=== PATIENT | female | born 1995 | race Caucasian/White ===

== ENCOUNTER 2019-09-09 14:56 | Outpatient (CLI) | payer BC, SELFPAY ==
--- NOTE | ~2019-09-09 | US_ITS ---
EXAMINATION: US thyroid DATE: 09/09/2019 15:29 INDICATION: Autoimmune thyroiditis. TECHNIQUE: Multiple ultrasound images of the thyroid were obtained. COMPARISON: Thyroid ultrasound 09/12/2014 FINDINGS: The right thyroid lobe measures 4.8 x 1.7 x 1.7 cm. The left thyroid lobe measures 4.5 x 1.2 x 2.1 c m. The thyroid demonstrates diffusely coarsened echotexture and increased vascularity. In the right thyroid lobe, there is a 7 mm solid, hypoechoic, [id number]-othb-[id number] nodule with ill-defined margin witho ut echogenic foci (TI-RADS TR4). IMPRESSION: 1. Heterogeneous, hypervascular thyroid, likely chronic lymphocytic (Jailene) thyroiditis. 2. Small thyroid nodule, likely not clinically significant. No follow-up is needed. Reviewed, dictated and finalized at location A. IMPRESSION: 1. Heterogeneous, hypervascular thyroid, likely chronic lymphocytic (Jailene) thyroiditis. 2. Small thyroid nodule, likely not clinically significant. No follow-up is nee ded.
== END 2019-09-09 14:57 | disposition home or self-care (01) ==
PROVIDERS: PCP Internal Medicine; Visit Provider Internal Medicine
DX: E06.3 Autoimmune thyroiditis (principal)
CPT/HCPCS: 76536

== ENCOUNTER 2020-04-03 16:10 | Outpatient (RCR) | payer OTHER, SELFPAY ==
--- NOTE | 2020-04-06 06:41 | PTOPEVAL ---
Thank you for referring Cathy Almanza to [facility].? The patient is scheduled to be seen for therapy? ___2_x/week for _6__ weeks. Please review, sign, date and return this plan of care JOHNSON. I agree with and certify that the following plan of care is medically necessary. Referring Physician Date Admitting Provider: Attending Provider: UNKNOWN,DOCTOR Referring Provider: *PT Outpatient Evaluation Start: 04/03/20 16:06 Freq: Status: Active Protocol: Document 04/03/20 16:07 RAMONE (Rec: 04/03/20 16:50 RAMONE [id number]) Therapy Assessment Status Assessment Status Assessment Status Evaluation Evaluation Information Problem Diagnosis right sided low back pain Onset 03/26/20 Subjective Information Pt. states that she started Query Text:As Reported By Patient/ developing back pain in September Family of 2016. 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 She reports that her pain has been on/off since 2016. She reports that she has had MRI and xray that revealed disc bulging. She describes pain at the right PSIS and stays localized. She states that it is not constant. she reports bending and twisting, as well as lifting will increase her pain. She states that if she sits for long periods of time initial movements can be difficult. She reports that her pain can ease with movement. She reports her goal is to decrease her low back pain. 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 reports that she sits 7 Comments hours a day for work Pain Assessment Pain Scale Pain Scale Used Numeric (1 - 10) Self Report Pain Assessment
--- NOTE | 2020-04-16 14:12 | PCPTNOTE ---
patient called and cancelled appt due to hurting too much. GINNA
--- NOTE | 2020-05-29 11:33 | PCPTNOTE ---
Ms. Almanza attended a total of 4 treatment sessions from 04/03/20 to 04/14/20. She contacted the clinic via phone after her final appointment noting lack of progress. She will be discharged from our care. Refer to pt. last daily note regarding discharge status. Abel Valle, MPT
== END 2020-04-14 14:48 | disposition home or self-care (01) ==
LOC: CHSPT 16:10
PROVIDERS: PCP Internal Medicine
DX: M54.5 Low back pain (principal); G89.29 Other chronic pain
CPT/HCPCS: 97014; 97110; 97140; 97161; G0283

== ENCOUNTER 2020-12-23 18:14 | Outpatient (CLI) | payer OTHER, SELFPAY ==
[2020-12-23 18:54] LABS: Hematocrit 41.6 % (35.0-49.0); Hemoglobin 14.1 g/dL (12.0-15.0); Mean Corpuscular HGB Conc 33.9 g/dL (32.0-36.0); Mean Corpuscular Hemoglobin 29.7 pg (27.0-31.0); Mean Corpuscular Volume 87.6 fL (78.0-102.0); Mean Platelet Volume 9.1 fl (9.2-11.8); Platelet Count Result 444 K/mm3 (150-420); Red Blood Count 4.75 M/mm3 (4.20-5.40); Red Cell Distribution Width 11.7 % (11.6-14.4); White Blood Count 7.2 K/mm3 (4.8-10.8)
[2020-12-23 19:17] LABS: SARS-CoV-2 Ag Negative (Negative)
[2020-12-23 19:45] LABS: SARS-CoV-2 RNA PCR Negative (Negative)
== END 2020-12-23 18:15 | disposition home or self-care (01) ==
LOC: CHSLAB 18:15
PROVIDERS: PCP Internal Medicine; Visit Provider Internal Medicine
DX: J06.9 Acute upper respiratory infection, unspecified (principal); Z20.822 Contact with and (suspected) exposure to COVID-19
CPT/HCPCS: 36415; 85027; 87426; C9803; U0003; U0005

== ENCOUNTER 2021-05-18 09:08 | Outpatient (CLI) | payer OTHER, SELFPAY | END 2021-05-18 09:09 | disposition home or self-care (01) | LOC: CHSOUTPT 09:26 | PROVIDERS: PCP Internal Medicine; Visit Provider Specialist | DX: D22.5 Melanocytic nevi of trunk (principal) | CPT/HCPCS: 88305 ==

== ENCOUNTER 2021-09-22 20:19 | Emergency (ER) | payer OTHER, SELFPAY ==
--- NOTE | 2021-09-22 20:38 | ED.ABDPAIN ---
HPI - Abdominal Pain General Chief Complaint: Abdominal Pain Stated Complaint: stomach pain Time Seen by Provider: 09/22/21 20:38 Source: patient History of Present Illness HPI narrative: 25-year-old presents with a 6 hour history -- generalized abdominal. Pain is intermittent. No fever. Nausea /vomiting /diarrhea. LMP 3 weeks ago. No history of any abdominal surgeries. No Prior episodes of abdominal pain. MD elicited complaint: abdominal pain Pertinent past history: none Onset (ago): hour(s) ( Started 9 hours ago) Pain Consistency: constant Location: diffuse Severity: moderate Quality: aching Radiation: back Exacerbating factors: nothing Relieving factors: nothing Associated symptoms: denies other symptoms Related Data Date of Last Menstrual Period: 09/01/21 Patient : No Home Medications Medication Instructions Recorded Confirmed levonorgestrel-ethinyl estrad 0.15 tablet PO DAILY 09/22/21 09/22/21 [Isaac (28)] levothyroxine 75 mcg PO DAILY 09/22/21 09/22/21 Allergies Allergy/AdvReac Type Severity Reaction Status Date / Time No Known Allergies Allergy Verified 09/22/21 20:38 Review of Systems Review of Systems: All systems reviewed & are unremarkable except as noted in HPI and below Constitutional: Constitutional: Reports as per HPI and Reports no additional constitutional complaints Eyes: Eyes: Reports as per HPI and Reports no additional eye complaints ENT: Reports system reviewed and no additional complaints, except as documented and Reports as per HPI Cardiovascular: Cardiovascular: Reports as per HPI and Reports no additional cardiovascular complaints Respiratory: Respiratory: Reports as per HPI and Reports no additional respiratory complaints Gastrointestinal: Gastrointestinal: Reports as per HPI, Reports no additional gastrointestinal complaints and Reports abdominal pain Genitourinary: Genitourinary: Reports no additional female genitourinary complaints and Reports as per HPI Musculoskeletal: Musculoskeletal: Reports no additional musculoskeletal complaints and Reports as per HPI Integumentary/Breasts: Skin/Breast: Reports system reviewed and no additional complaints, except as docu and Reports as per HPI Neurologic: Reports system reviewed and no additional complaints, except as documented and Reports as per HPI Psychiatric: Psychiatric: Reports no additional psychiatric complaints and Reports as per HPI Endocrine: Endocrine: Reports no additional endocrine complaints and Reports as per HPI Hematologic/Lymphatic: Hematologic/Lymphatic: Reports no additional hematologic/lymphatic complaints and Reports as per HPI Allergic/Immunologic: Allergic/Immunologic: Reports no additional allergic/immunologic complaints and Reports as per HPI Exam Const: General: no acute distress and alert Orientation/consciousness: patient oriented x3 HENMT: Head: normal to inspection Mouth: Yes lip normal Eyes: Conjunctivae: conjunctivae normal Pupils: Equal, round and reactive pupils present Neck: Neck: normal visual inspection and no lymphadenopathy Chest: Chest palpation & inspection: normal inspection of the chest and abnormal inspection of the chest Resp: Effort & Inspection: normal respiratory effort Auscultation: clear to auscultation bilaterally Cardio: Rate: regular rate Rhythm: regular rhythm Other: Hypertension with a blood pressure of 130/108 GI: GI Palp: Yes Soft to palpation Other: no tenderness/ rigidity /rebound. : General: Yes no CVA tenderness Skin: General skin exam: normal color Rashes: no rashes Neuro: General: patient oriented x3 and moves all extremities Extrem: General: normal to inspection and edema Psych: Mental Status: mental status grossly normal Affect: normal affect Attitude: cooperative MDM - Abdominal Pain MDM Narrative Medical decision making narrative: urinary tract infection hypertension abdominal pain elevated TSH Differe
[2021-09-22 20:40] VITALS: BP 156/120; PULSE 122; RESP 20; TEMP 36.6; O2SAT 98
[2021-09-22 20:56] LABS: Add Urine Microscopic? YES; Appearance Urine Clear (Clear); Basophils Absolute Auto 0.06 K/mm3 (0.00-0.10); Basophils Percent Auto 0.7 % (0.0-1.0); Bilirubin Urine Negative (Negative); Blood Urine Negative (Negative); Color Urine Light Yellow (Yellow); Eosinophils Absolute Auto 0.13 K/mm3 (0.02-0.50); Eosinophils Percent Auto 1.6 % (1.0-6.0); Glucose Urine UA Negative (Negative); Hematocrit 39.6 % (35.0-49.0); Hemoglobin 13.2 g/dL (12.0-15.0); Immature Granulocyte Absolute 0.03 K/mm3 (0.00-0.00); Immature Granulocyte Percent A 0.4 % (0.0-0.0); Ketones Urine Negative (Negative); Leukocyte Esterase Ur 1+ (Negative); Lymphocytes Absolute Auto 2.28 K/mm3 (1.10-4.50); Lymphocytes Percent Auto 27.8 % (18.0-42.0); Mean Corpuscular HGB Conc 33.3 g/dL (32.0-36.0); Mean Corpuscular Hemoglobin 29.7 pg (27.0-31.0); Mean Platelet Volume 9.1 fl (9.2-11.8); Monocytes Absolute Auto 0.74 K/mm3 (0.10-0.90); Neutrophils Percent Auto 60.5 % (50.0-70.0); Nitrate Urine Negative (Negative); Platelet Count Result 333 K/mm3 (150-420); Protein Urine Negative (Negative); Red Blood Count 4.45 M/mm3 (4.20-5.40); Red Cell Distribution Width 11.9 % (11.6-14.4); Urobilinogen Urine 0.2 mg/dL (0.2-1.0); White Blood Count 8.2 K/mm3 (4.8-10.8)
[2021-09-22 21:02] LABS: Bacteria Urine 1+ /hpf; Pregnancy On Board Control Positive; Squamous Epithelial Cell Urine Few /hpf (Few); Urine Pregnancy Test Negative
[2021-09-22 21:07] LABS: INR 0.9; Prothrombin Time 9.9 Seconds (9.50-12.10)
[2021-09-22 21:15] LABS: Lactic Acid Reflex 0.8 mmol/L (0.4-2.0)
[2021-09-22 21:19] LABS: Alanine Aminotransferase 22 U/L (14-59); Albumin Level 3.5 g/dL (3.4-5.0); Alkaline Phosphatase 61 U/L (46-116); Anion Gap 11 mmol/L (8-16); Aspartate Amino Transferase 14 U/L (15-37); Bilirubin,Total 0.3 mg/dL (0.00-1.00); Blood Urea Nitrogen 9 mg/dL (7-18); Calcium 9.3 mg/dL (8.5-10.1); Carbon Dioxide 23 mmol/L (21-32); Chloride 103 mmol/L (98-108); Estimated CRCL calculation 90 ml/min; Estimated Glomerular Filt Rate > 60; Glucose 94 mg/dL (70-99); Lipase 76 U/L (73-393); Osmolality Calculated 282 mOsm/kg (285-295); Potassium 3.6 mmol/L (3.5-5.1); Sodium 137 mmol/L (136-145); Thyroid Stimulating Hormone 7.39 uIU/mL (0.36-3.74); Total Protein 7.1 g/dL (6.4-8.2)
[2021-09-22 21:20] LABS: Troponin I 5.6 ng/L (0.00-60.4)
[2021-09-22] MEDS: CIPROFLOXACIN 250 MG TABLET PO (21:43)
[2021-09-22 21:59] VITALS: BP 137/97; PULSE 122; RESP 20; TEMP 37.6; O2SAT 98
== END 2021-09-22 22:01 | disposition home or self-care (01) ==
PROVIDERS: Emergency Provider Internal Medicine Critical Care Medicine; PCP Internal Medicine
DX: R10.84 Generalized abdominal pain (principal); N30.00 Acute cystitis without hematuria; I10 Essential (primary) hypertension; E03.9 Hypothyroidism, unspecified
CPT/HCPCS: 36415; 80053; 81001; 81025; 83605; 83690; 84443; 84484; 85025; 85610; 99284; A9270

== ENCOUNTER 2021-12-17 10:31 | Outpatient (CLI) | payer OTHER, SELFPAY ==
--- NOTE | ~2021-12-17 | XR_ITS ---
EXAMINATION: XR abdomen obstructive series DATE: 12/17/2021 11:05 INDICATION: Abdominal pain TECHNIQUE: Upright and supine views of the abdomen were obtained. COMPARISON: None. FINDINGS: There is no free intraperitoneal gas or evidence of bowel obstruction. The bowel gas patter n is normal. The visualized lung bases are clear. There is a moderate volume of colonic stool. IMPRESSION: 1. Nonobstructive bowel gas pattern. No radiographic correlate for the patient's symptoms. Reviewed, dictated and finalized at location F. IMPRESSION: 1. Nonobstructive bowel gas pattern. No radiographic correlate for the patient' s symptoms.
== END 2021-12-17 10:32 | disposition home or self-care (01) ==
LOC: CHSIMG 10:37
PROVIDERS: PCP Internal Medicine; Visit Provider Nurse Practitioner Family
DX: R10.9 Unspecified abdominal pain (principal)
CPT/HCPCS: 74019

== ENCOUNTER 2022-05-17 16:03 | Outpatient (CLI) | payer OTHER, SELFPAY | END 2022-05-17 16:04 | disposition home or self-care (01) | PROVIDERS: PCP Internal Medicine; Visit Provider Specialist | DX: D22.5 Melanocytic nevi of trunk (principal) | CPT/HCPCS: 88305 ==

== ENCOUNTER 2023-02-14 15:33 | Outpatient (CLI) | payer OTHER, SELFPAY ==
[2023-02-14 15:47] LABS: Basophils Absolute Auto 0.04 K/mm3 (0.00-0.10); Basophils Percent Auto 0.4 % (0.0-1.0); Eosinophils Absolute Auto 0.07 K/mm3 (0.02-0.50); Eosinophils Percent Auto 0.8 % (1.0-6.0); Hematocrit 40.4 % (35.0-49.0); Hemoglobin 13.7 g/dL (12.0-15.0); Immature Granulocyte Absolute 0.02 K/mm3 (0.00-0.00); Immature Granulocyte Percent A 0.2 % (0.0-0.0); Lymphocytes Percent Auto 18.5 % (18.0-42.0); Mean Corpuscular HGB Conc 33.9 g/dL (32.0-36.0); Mean Corpuscular Hemoglobin 29.9 pg (27.0-31.0); Mean Corpuscular Volume 88.2 fL (78.0-102.0); Mean Platelet Volume 9.1 fl (9.2-11.8); Monocytes Absolute Auto 0.79 K/mm3 (0.10-0.90); Monocytes Percent Auto 8.6 % (2.0-11.0); Neutrophils Absolute Auto 6.6 K/mm3 (1.7-7.2); Neutrophils Percent Auto 71.5 % (50.0-70.0); Platelet Count Result 397 K/mm3 (150-420); Red Blood Count 4.58 M/mm3 (4.20-5.40); Red Cell Distribution Width 12.2 % (11.6-14.4); White Blood Count 9.2 K/mm3 (4.8-10.8)
[2023-02-14 16:20] LABS: Anion Gap 7 mmol/L (8-16); Blood Urea Nitrogen 9 mg/dL (7-18); Carbon Dioxide 30 mmol/L (21-32); Chloride 105 mmol/L (98-108); Sodium 142 mmol/L (136-145)
[2023-02-14 16:21] LABS: Alanine Aminotransferase 25 U/L (14-59); Albumin Level 3.6 g/dL (3.4-5.0); Alkaline Phosphatase 124 U/L (46-116); Aspartate Amino Transferase 15 U/L (15-37); Bilirubin,Total 0.4 mg/dL (0.00-1.00); Estimated Glomerular Filt Rate > 60; Free T3 2.23 pg/mL (2.18-3.98); Free T4 Free Thyroxine 1.09 ng/dL (0.76-1.46); Glucose 103 mg/dL (70-99); Magnesium 2.1 mg/dL (1.8-2.4); Osmolality Calculated 292 mOsm/kg (285-295); Total Protein 7.3 g/dL (6.4-8.2)
== END 2023-02-14 15:34 | disposition home or self-care (01) ==
LOC: CHSLAB 15:35
PROVIDERS: PCP Internal Medicine; Visit Provider Internal Medicine
DX: J06.9 Acute upper respiratory infection, unspecified (principal); E03.4 Atrophy of thyroid (acquired)
CPT/HCPCS: 36415; 80053; 83735; 84439; 84443; 84481; 85025

== ENCOUNTER 2024-01-16 17:04 | Emergency (ER) | payer OTHER, SELFPAY ==
[2024-01-16] VITALS (11 sets, daily range): BP systolic 119–137; BP diastolic 82–106; PULSE 105–145; RESP 12–32; TEMP 36.4; O2SAT 98–100
--- NOTE | ~2024-01-16 | XR_ITS ---
EXAMINATION: XR chest 2V DATE: 01/16/2024 18:45 INDICATION: Tachycardia TECHNIQUE: Frontal and lateral views of the chest were obtained. COMPARISON: None FINDINGS: Focal lingular airspace opacity in the anterior mid left lung. No pulmonary edema, pleural effusion o r pneumothorax. The cardiomediastinal silhouette is normal. Visualized bones and soft tissues are unr emarkable. IMPRESSION: 1. Focal lingular airspace opacity which could represent pneumonia, atelectasis or pulmonary infarct. Reviewed, dictated and finalized at location A.
--- NOTE | 2024-01-16 17:22 | ECG_ITS ---
Test Date: 2024-01-16 17:52:23 Measurements Intervals [place] Rate: 127 P: 45 AR: 159 QRS: 34 QRSD: 88 T: 36 QT: 312 QTc: 455 Interpretive Statements SINUS TACHYCARDIA DELAYED PRECORDIAL R/S TRANSITION CONSIDER INFERIOR INFARCT, AGE INDETERMINATE BASELINE ARTIFACT- I, III, AVR, AVL ABNORMAL ECG No previous ECG available for comparison Electronically Signed On 01-16-2024 20:02:09 CDT by Sudeep Patel D.O.
--- NOTE | 2024-01-16 17:23 | ED.GENADULT ---
HPI - General Adult General Chief complaint: Unspecified Stated complaint: rapid heart rate Time Seen by Provider: 01/16/24 17:16 Source: patient Mode of arrival: ambulatory Limitations: no limitations History of Present Illness HPI narrative: patient is a 28-year-old female with some elevated heart rate noted by some flushing and some palpitations as well as her Apple watch showing heart rates in the 120s 130s. She said she gets elevated heart rates when she is not feeling well. She said she is not feeling normal and possibly sickly today. patient has hypertension and hypothyroid. Onset (ago): day(s) (1) Location: chest ( Palpitations) Radiation: non-radiation Severity scale (1-10): 1 Quality: dull Pain Consistency: intermittent Relieving factors: none Exacerbating factors: none Associated symptoms: malaise Treatments prior to arrival: none Related Data Home Medications Medication Instructions Recorded Confirmed levothyroxine 75 mcg tablet 75 mcg PO DAILY 09/22/21 01/16/24 losartan 50 mg-hydrochlorothiazide 1 tablet PO DAILY 01/28/22 01/16/24 12.5 mg tablet Allergies Allergy/AdvReac Type Severity Reaction Status Date / Time sulfamethoxazole AdvReac Severe Nausea Verified 01/16/24 17:13 [From Bactrim] trimethoprim [From Bactrim] AdvReac Severe Nausea Verified 01/16/24 17:13 Review of Systems Review of Systems: All systems reviewed & are unremarkable except as noted in HPI and below Constitutional: Constitutional: Reports no additional constitutional complaints Eyes: Eyes: Reports no additional eye complaints ENT: Reports system reviewed and no additional complaints, except as documented Cardiovascular: Cardiovascular: Reports no additional cardiovascular complaints Respiratory: Respiratory: Reports no additional respiratory complaints Gastrointestinal: Gastrointestinal: Reports no additional gastrointestinal complaints Genitourinary: Genitourinary: Reports no additional female genitourinary complaints Musculoskeletal: Musculoskeletal: Reports no additional musculoskeletal complaints Integumentary/Breasts: Skin/Breast: Reports system reviewed and no additional complaints, except as docu Neurologic: Reports system reviewed and no additional complaints, except as documented Psychiatric: Psychiatric: Reports no additional psychiatric complaints Endocrine: Endocrine: Reports no additional endocrine complaints Hematologic/Lymphatic: Hematologic/Lymphatic: Reports no additional hematologic/lymphatic complaints Allergic/Immunologic: Allergic/Immunologic: Reports no additional allergic/immunologic complaints PMFSH Past Medical History Medical History BRBPR (bright red blood per rectum) Hypertension Overweight Rectal pain Thyroid disorder Surgical History Surgical History H/O colposcopy with cervical biopsy +hpv - 2 - 3years Family History Family History Mother Hypertension Grandparent High cholesterol Pancreas cancer Other Heart disease Social History Social History Smoking status: Never smoker Alcohol intake: current Alcohol use details: social Substance use: never Substance use type: does not use Lack of Transportation: No Lack of Food: Never True Current Housing: I Have Housing Concerned About Future Housing: No Difficulty Paying Gas/Electric Bills: No Difficulty Paying for Meds: No Currently Unemployed: No Education: Bachelor's Degree Difficulty w/ Childcare or Family Care: No Living arrangements: with family Occupation/Education: occupation Gender identity (if verbalized by the patient): Female Sexual Orientation (if Verbalized by the Patient): Straight or Heterosexual Exam Const: General: cooperative, healt
[2024-01-16 17:40] LABS: Basophils Absolute Auto 0.04 K/mm3 (0.00-0.10); Basophils Percent Auto 0.5 % (0.0-1.0); Eosinophils Absolute Auto 0.01 K/mm3 (0.02-0.50); Eosinophils Percent Auto 0.1 % (1.0-6.0); Hematocrit 39.7 % (35.0-49.0); Hemoglobin 13.6 g/dL (12.0-15.0); Immature Granulocyte Absolute 0.03 K/mm3 (0.00-0.00); Immature Granulocyte Percent A 0.4 % (0.0-0.0); Lymphocytes Absolute Auto 1.27 K/mm3 (1.10-4.50); Lymphocytes Percent Auto 17.1 % (18.0-42.0); Mean Corpuscular HGB Conc 34.3 g/dL (32-36); Mean Corpuscular Hemoglobin 29.9 pg (27.0-31.0); Mean Corpuscular Volume 87.3 fL (78.0-102.0); Mean Platelet Volume 9.2 fl (9.2-11.8); Monocytes Percent Auto 9.4 % (2.0-11.0); Neutrophils Absolute Auto 5.36 K/mm3 (1.70-7.20); Neutrophils Percent Auto 72.5 % (50.0-70.0); Platelet Count Result 301 K/mm3 (150-420); Red Blood Count 4.55 M/mm3 (4.20-5.40); Red Cell Distribution Width 12.1 % (11.6-14.4); White Blood Count 7.4 K/mm3 (4.8-10.8)
[2024-01-16 17:52] LABS: D Dimer 0.45 mg/L (0.19-0.50)
[2024-01-16 18:03] LABS: Alanine Aminotransferase 16 U/L (14-59); Albumin Level 3.7 g/dL (3.4-5.0); Alkaline Phosphatase 95 U/L (46-116); Anion Gap 10 mmol/L (4-12); Aspartate Amino Transferase 12 U/L (15-37); Bilirubin,Total 0.5 mg/dL (0.00-1.00); Blood Urea Nitrogen 10 mg/dL (7-18); Carbon Dioxide 26 mmol/L (21-32); Chloride 100 mmol/L (98-108); Estimated CRCL calculation 72 ml/min; Estimated Glomerular Filt Rate > 60; Glucose 83 mg/dL (70-99); Osmolality Calculated 280 mOsm/kg (285-295); Potassium 3.5 mmol/L (3.5-5.1); Sodium 136 mmol/L (136-145); Thyroid Stimulating Hormone 0.95 uIU/mL (0.36-3.74); Total Protein 8.1 g/dL (6.4-8.2); Troponin I < 4.0 ng/L (0.00-60.4)
[2024-01-16 18:14] LABS: SARS-CoV-2 RNA PCR Negative (Negative)
[2024-01-16 18:15] LABS: Influenza A QL RT-PCR Negative (Negative); Influenza B QL RT-PCR Negative (Negative); RSV RNA, RT-PCR Negative (Negative)
--- NOTE | 2024-01-16 18:37 | PC.NURSE ---
Pt resting comfortably. Call light within reach.
[2024-01-16 18:40] LABS: Appearance Urine Clear (Clear); Bilirubin Urine Negative (Negative); Blood Urine 2+ (Negative); Color Urine Light Yellow (Yellow); Glucose Urine UA Negative (Negative); Ketones Urine Negative (Negative); Leukocyte Esterase Ur 1+ LEU/UL (Negative); Nitrate Urine Negative (Negative); Protein Urine Negative (Negative); Specific Grav Ur <= 1.005 (1.010-1.020); Urobilinogen Urine 0.2 mg/dL (0.2-1.0)
[2024-01-16 18:46] LABS: Add Urine Microscopic? YES; RBC Urine 0-2 /hpf (0-2)
[2024-01-16 18:47] LABS: Bacteria Urine 3+ /hpf; Pregnancy On Board Control Positive; Squamous Epithelial Cell Urine Few /hpf (Few); Urine Pregnancy Test Negative
--- NOTE | 2024-01-16 18:55 | PC.NURSE ---
assumed care. report received from Letty MCMILLAN
[2024-01-16] MEDS: atenoloL 25 MG TABLET PO (19:14)
[2024-01-16] MEDS: CIPROFLOXACIN 500 MG TAB PO (19:14)
--- NOTE | 2024-01-16 19:14 | PC.NURSE ---
patient resting on stretcher. Medicated per AUG. ER provider at the bedside
[2024-01-16] MEDS: AMOXICILLIN/CLAVULANATE K 875-125 MG TAB 1 TABLET PO (19:27)
--- NOTE | 2024-01-20 12:28 | PC.NURSE ---
URINE CULTURE REVIEWED, NO GROWTH NOTED
== END 2024-01-16 20:36 | disposition home or self-care (01) ==
PROVIDERS: Emergency Provider Emergency Medicine; PCP Internal Medicine
DX: I47.19 Other supraventricular tachycardia (principal); J18.9 Pneumonia, unspecified organism; N30.01 Acute cystitis with hematuria; I10 Essential (primary) hypertension; Z79.899 Other long term (current) drug therapy; Z20.822 Contact with and (suspected) exposure to COVID-19
CPT/HCPCS: 36415; 71046; 80053; 81001; 81025; 84443; 84484; 85025; 85380; 87086; 87637; 93005; 99284; A9270

== ENCOUNTER 2024-01-26 11:57 | Outpatient (CLI) | payer OTHER, SELFPAY | END 2024-01-26 11:58 | disposition home or self-care (01) | LOC: CHSCARD 12:00 | PROVIDERS: PCP Internal Medicine; Visit Provider Internal Medicine | DX: R06.2 Wheezing (principal) | CPT/HCPCS: 94060; 94726; 94729 ==

== ENCOUNTER 2024-02-23 17:12 | Outpatient (CLI) | payer OTHER, SELFPAY ==
--- NOTE | ~2024-02-23 | XR_ITS ---
EXAMINATION: XR chest 2V DATE: 02/23/2024 18:21 INDICATION: Pneumonia. TECHNIQUE: Frontal and lateral views of the chest were obtained. COMPARISON: Chest 2 views 01/16/2024 FINDINGS: There is no pneumonia, pleural effusion, or pneumothorax. The heart size is normal. IMPRESSION: 1. No acute cardiopulmonary disease. Reviewed, dictated and finalized at location A.
== END 2024-02-23 17:13 | disposition home or self-care (01) ==
PROVIDERS: PCP Internal Medicine; Visit Provider Internal Medicine
DX: R06.2 Wheezing (principal)
CPT/HCPCS: 71046

== ENCOUNTER 2024-05-21 16:18 | Outpatient (CLI) | payer OTHER, SELFPAY | END 2024-05-21 16:19 | disposition home or self-care (01) | LOC: CHSLAB 16:20 | PROVIDERS: PCP Internal Medicine; Visit Provider Specialist | DX: D22.5 Melanocytic nevi of trunk (principal) | CPT/HCPCS: 88305; 88342 ==

== ENCOUNTER 2024-07-26 11:04 | Outpatient (CLI) | payer OTHER, SELFPAY ==
--- NOTE | ~2024-07-26 | XR_ITS ---
EXAMINATION: XR lumbar spine 2-3V DATE: 07/26/2024 11:44 INDICATION: Right-sided low back pain post lifting injury 7 years prior TECHNIQUE: Anteroposterior and lateral views of the lumbar spine, and cone-down lateral view of the l umbosacral junction were obtained. COMPARISON: None. FINDINGS: 8 degree lumbar dextrocurvature. Sagittal alignment is normal. Vertebral body and disc heights are no rmal. Sacral arches are intact. Minimal to mild lumbar facet osteoarthritis. Normal bowel gas pattern . Lung bases are clear. Heart size is normal. IMPRESSION: 1. 8 degrees lumbar dextrocurvature. Reviewed, dictated and finalized at location B. CHUTE SUPERVISOR
[2024-07-26 11:37] LABS: Hematocrit 40.9 % (35.0-49.0); Hemoglobin 13.4 g/dL (12.0-15.0); Mean Corpuscular HGB Conc 32.8 g/dL (32-36); Mean Corpuscular Hemoglobin 28.5 pg (27.0-31.0); Mean Corpuscular Volume 86.8 fL (78.0-102.0); Mean Platelet Volume 9.4 fl (9.2-11.8); Platelet Count Result 348 K/mm3 (150-420); Red Blood Count 4.71 M/mm3 (4.20-5.40); Red Cell Distribution Width 12.2 % (11.6-14.4); White Blood Count 6.2 K/mm3 (4.8-10.8)
--- OUTSIDE RECORDS SUMMARY | 2024-07-26 11:47 | XMS_ITS | Referral Summary ---
Author Organization [facility] Address [address] [place] [phone] Care Team Providers Care Application Packaging Specialist Name Role Phone Wei Hull MD Primary Care Provider + [phone] Allergies No known active allergies Medications Kurvelo, 28, 0.15-0.03 mg per tablet Take 1 tablet by mouth daily 0 Active levothyroxine sodium (TIROSINT) 100 mcg capsule Take 100 mcg by mouth press helper before breakfast Active Active Problems No known active problems Social History Tobacco Use Types Packs/Day Years Used Date Smoking Tobacco: Never Smokeless Tobacco: Never Personal Safety Answer Date Recorded Getting School Help Needed Not on file 09/02 Comments Unknown Sex and Gender Information Value Date Recorded Sex Assigned at Not on file Legal Sex Female 11:19 AM CDT Gender Identity Not on file Sexual Orientation Not on file Plan of Treatment Not on file Insurance [facility] CHOICE PLUS [facility] HMO/PPO Address: [facility] [address] [place] [address] Care Teams Application Packaging Specialist Relationship Specialty Start Date End Date Wei Hull MD [address] [place] [address] PCP - General Internal Medicine 03/26/20
--- OUTSIDE RECORDS SUMMARY | 2024-07-26 11:47 | XMS_ITS | Clinical Summary ---
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 Gender Identity Not on file Sexual Orientation Not on file Plan of Treatment Health Maintenance Due Date Last Done Comments Cervical Cancer Screening Pa p Smear (Age 30 to 64) Every 3 Years 1993 Annual Physical 1996 Hepatitis C 10/28/2011 DTaP, Tdap and Td Vaccines ( 1 - Tdap) 2012 Hepatitis B Vaccines (1 of 3 - 19+ 3-dose series) 2012 Cervical Cancer Screening Pa p with HPV Testing (Age 30 to 64) Every 5 Years 10/28/2023 Cervical Cancer Screening with HPV 10/28/2023 COVID-19 Vaccine (2023-2 5 season) 2024 Influenza Adult (#1) 2024 HPV Vaccines Aged Out No longer eligi ble based on patient's age to complete this topic Meningococcal B Vaccine Aged Out No l onger eligible based on patient's age to complete this topic Meningococcal Vaccine Aged Out No fredy maxim eligible based on patient's age to complete this topic Pneumococcal Vaccine: Pediat rics (0 to 5 Years) and At-Risk Patients (6 to 64 Years) Aged Out No longer eligible b ased on patient's age to complete this topic RSV Immunizations Under 20 Months Aged Out No longer eligible based on patient's age to complete this topic
--- OUTSIDE RECORDS SUMMARY | 2024-07-26 11:47 | XMS_ITS | Clinical Summary ---
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
[2024-07-26 12:10] LABS: Alanine Aminotransferase 19 U/L (14-59); Alkaline Phosphatase 68 U/L (46-116); Amylase 55 U/L (25-115); Anion Gap 11 mmol/L (4-12); Aspartate Amino Transferase < 10 U/L (15-37); Bilirubin,Total 0.5 mg/dL (0.00-1.00); Blood Urea Nitrogen 10 mg/dL (7-18); Calcium 9.6 mg/dL (8.5-10.1); Carbon Dioxide 25 mmol/L (21-32); Chloride 104 mmol/L (98-108); Creatine Kinase 73 U/L (26-192); Estimated Glomerular Filt Rate > 60; Glucose 85 mg/dL (70-99); Magnesium 1.9 mg/dL (1.8-2.4); Osmolality Calculated 288 mOsm/kg (285-295); Potassium 4.4 mmol/L (3.5-5.1); Sodium 140 mmol/L (136-145); Total Protein 7.3 g/dL (6.4-8.2)
[2024-07-27 09:06] LABS: Lipase 34 U/L (16-77)
== END 2024-07-26 11:05 | disposition home or self-care (01) ==
LOC: CHSLAB 11:06
PROVIDERS: PCP Internal Medicine; Visit Provider Internal Medicine
DX: R07.9 Chest pain, unspecified (principal); R10.13 Epigastric pain; M54.50 Low back pain, unspecified; M41.86 Other forms of scoliosis, lumbar region
CPT/HCPCS: 36415; 72100; 80053; 82150; 82550; 83690; 83735; 85027

== ENCOUNTER 2024-08-01 07:33 | Outpatient (CLI) | payer OTHER, SELFPAY ==
--- NOTE | ~2024-08-01 | US_ITS ---
Limited Abdominal Sonogram: Real-time sonographic imaging of the right upper quadrant was performed. Clinical History: Abdominal pain Findings: The liver appears heterogeneous, with no evidence of mass lesion or bile duct dilatation. Main portal vein demonstrates normal direction of flow. The gallbladder is well distended, and appear s normal with no evidence of gallstone or wall thickening. The common bile duct measures 2 mm. The v isualized pancreas, aorta, and IVC are unremarkable. Impression: Probable fatty infiltration of the liver, or possibly other chronic liver disease. Reviewed, dictated and finalized at location M. WABLE ENERGY DIVISION MANAGER Impression: Probable fatty infiltration of the liver, or possibly other chronic liver disea se.
--- OUTSIDE RECORDS SUMMARY | 2024-08-01 07:42 | XMS_ITS | Clinical Summary ---
Author Organization [facility] Address [address] [place] [phone] Care Team Providers Care Dental Appliance Mechanic Name Role Phone Wei Hull MD Primary Care Provider + [phone] Allergies No known active allergies Medications Kurvelo, 28, 0.15-0.03 mg per tablet Take 1 tablet by mouth daily 0 Active levothyroxine sodium (TIROSINT) 100 mcg capsule Take 100 mcg by mouth technical mgr before breakfast Active Active Problems No known [...] Plan of Treatment Not on file Insurance [facility] CHOICE PLUS Care Teams Dental Appliance Mechanic Relationship Specialty Start Date End Date Wei Hull MD [address] [place] [address] PCP - General Internal Medicine 03/26/20
--- OUTSIDE RECORDS SUMMARY | 2024-08-01 07:42 | XMS_ITS | Clinical Summary ---
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
--- OUTSIDE RECORDS SUMMARY | 2024-08-01 07:42 | XMS_ITS | Referral Summary ---
Author Organization [facility] Address [address] [place] [phone] Care Team Providers Care Automatic Washer Mechanic Name Role Phone Wei Hull MD Primary Care Provider + [phone] Allergies No known active allergies Medications Kurvelo, 28, 0.15-0.03 mg per tablet Take 1 tablet by mouth daily 0 Active levothyroxine sodium (TIROSINT) 100 mcg capsule Take 100 mcg by mouth bore mill operator before breakfast Active Active Problems No known [...] Plan of Treatment Not on file Insurance [facility] CHOICE PLUS [facility] HMO/PPO Address: [facility] [address] [place] [address] Care Teams Automatic Washer Mechanic Relationship Specialty Start Date End Date Wei Hull MD [address] [place] [address] PCP - General Internal Medicine 03/26/20
== END 2024-08-01 07:34 | disposition home or self-care (01) ==
PROVIDERS: PCP Internal Medicine; Visit Provider Internal Medicine
DX: R10.11 Right upper quadrant pain (principal)
CPT/HCPCS: 76705

== ENCOUNTER 2024-08-05 08:56 | Outpatient (CLI) | payer OTHER, SELFPAY ==
--- NOTE | ~2024-08-05 | NM_ITS ---
EXAMINATION: NM hepatobiliary w pharm DATE: 08/05/2024 10:44 INDICATION: Right upper quadrant abdominal pain. COMPARISON: Ultrasound 08/01/2024 TECHNIQUE: 6.5 mCi Tc-99m mebrofenin (Choletec) was administered intravenously. Scintigraphic images of the abdomen were obtained for one hour. Then, 1.4 mcg sincalide (Kinevac) IV was administered, an d imaging was continued for 30 minutes. FINDINGS: There is normal clearance of radiotracer from the blood pool. There is homogeneous tracer u ptake by the liver. Activity progresses to the bowel and gallbladder. Gallbladder ejection fraction (GBEF) was 71%. Note that most patients with gallbladder dysfunction have GBEF < 35%, which overlaps with the broad normal range of 10-90%. IMPRESSION: 1. Normal hepatobiliary scintigraphy. Reviewed, dictated and finalized at location A. CAL BILL PROCESSOR
== END 2024-08-05 08:57 | disposition home or self-care (01) ==
LOC: CHSIMG 08:57
PROVIDERS: PCP Internal Medicine; Visit Provider Internal Medicine
DX: R10.11 Right upper quadrant pain (principal)
CPT/HCPCS: 78227; A9537; J2805

== ENCOUNTER 2024-09-11 00:11 | Day surgery (SDC) | payer OTHER, SELFPAY ==
[2024-09-06 13:42] VITALS: BMI 26.6
--- OUTSIDE RECORDS SUMMARY | 2024-09-11 00:14 | XMS_ITS | Clinical Summary ---
Author Organization [facility] Address [address] [place] [phone] Care Team Providers Care Collar Baster Name Role Phone Wei Hull MD Primary Care Provider + [phone] Allergies No known active allergies Medications Kurvelo, 28, 0.15-0.03 mg per tablet Take 1 tablet by mouth daily 0 Active levothyroxine sodium (TIROSINT) 100 mcg capsule Take 100 mcg by mouth table cover folder before breakfast Active Active Problems No known [...] Plan of Treatment Not on file Insurance [facility] CHOICE PLUS Care Teams Collar Baster Relationship Specialty Start Date End Date Wei Hull MD [address] [place] [address] PCP - General Internal Medicine 03/26/20
--- OUTSIDE RECORDS SUMMARY | 2024-09-11 00:14 | XMS_ITS | Clinical Summary ---
Author Organization 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
--- OUTSIDE RECORDS SUMMARY | 2024-09-11 00:14 | XMS_ITS | Referral Summary ---
Author Organization [facility] Address [address] [place] [id number] Care Team Providers Care Personnel And Payroll Technician Name Role Phone Wei Hull MD Primary Care Provider + [phone] Allergies No known active allergies Medications Kurvelo, 28, 0.15-0.03 mg per tablet Take 1 tablet by mouth daily 0 Active levothyroxine sodium (TIROSINT) 100 mcg capsule Take 100 mcg by mouth metal rivet machine operator before breakfast Active Active Problems No [...] Plan of Treatment Not on file Insurance [facility] Address: [facility] [address] [place] [address] Care Teams Personnel And Payroll Technician Relationship Specialty Start Date End Date Wei Hull MD [address] [place] [address] PCP - General Internal Medicine 03/26/20
[2024-09-11 12:14] VITALS: BP 138/94; PULSE 96; RESP 16; TEMP 36.3; O2SAT 100; BMI 25.7
[2024-09-11] MEDS: LACTATED RINGERS 1,000 ML 150 ML IV CONT (12:22)
--- NOTE | 2024-09-11 13:15 | WPDANESEPPF ---
Anes - Initial Pre Proc Eval Procedure: Operation Date: 09/11/24 13:00 Proposed Procedures p Esophagogastroduodenoscopy - Amilcar Baker MD Date/Time: 09/11/24 13:15 Surgeon: Amilcar Baker MD Pre Op Diagnosis: Left upper quadrant pain, Chest pain, unspecified Patient Data Age: 28 Gender: F Height: 1.63 m Weight: 68.1 kg Last Vital Signs Temp 97.4 F L 09/11/24 12:14 Pulse 96 09/11/24 12:14 Resp 16 09/11/24 12:14 BP 138/94 H 09/11/24 12:14 Pulse Ox 100 09/11/24 12:14 O2 Del Method Room Air 09/11/24 12:14 Allergies Allergy/AdvReac Type Severity Reaction Status Date / Time sulfamethoxazole (From AdvReac Severe Nausea Verified 09/11/24 12:12 Bactrim) trimethoprim (From Bactrim) AdvReac Severe Nausea Verified 09/11/24 12:12 Home Medications ?Medication ?Instructions ?Recorded ?Confirmed ?Type levothyroxine 75 mcg tablet 100 mcg PO DAILY 09/22/21 09/11/24 History Kurvelo (28) 0.15 mg-0.03 mg 1 tablet PO DAILY #112 tabs 01/10/24 09/11/24 Rx tablet (levonorgestrel-ethinyl estrad) pantoprazole 40 mg tablet,delayed 40 mg PO BID 3 months #180 tabs 08/29/24 09/11/24 Rx release Patient hx anesthesia problems: none Family hx anesthesia problems: none Results Review: All pre-operative results and documents have been reviewed as part of the pre-operative evaluation. [facility] Past Medical History Medical History Chest pain Constipation GERD (gastroesophageal reflux disease) Left upper quadrant pain Hypertension BRBPR (bright red blood per rectum) Rectal pain Thyroid disorder Overweight Surgical History Surgical History H/O colposcopy with cervical biopsy +hpv - 2 - 3years Family History Family History Mother Hypertension Grandparent High cholesterol Pancreas cancer Other Heart disease Social History Social History Smoking status: Never smoker Substance use: never Substance use type: does not use Lack of Transportation: No Lack of Food: Never True Current Housing: I Have Housing Concerned About Future Housing: No Difficulty Paying Gas/Electric Bills: No Difficulty Paying for Meds: No Currently Unemployed: No Education: Bachelor's Degree Difficulty w/ Childcare or Family Care: No Living arrangements: with family Occupation/Education: occupation Gender identity (if verbalized by the patient): Female Sexual Orientation (if Verbalized by the Patient): Straight or Heterosexual Anes - Eval Final PreProcedure Day of Procedure 09/11/24 13:15 Patient weight: overweight Lungs: normal air movement Airway: Mallampati scale class II Neurological: alert and oriented Last oral intake: >/= 8 hours ASA classification: II Emergent: no Anesthetic plan: proceed Anesthesia type and monitoring: general GIVS and standard monitoring Results Review: All pre-operative results and documents have been reviewed as part of the pre-operative evaluation. Hypothyroidism, hx HTN/hyperlipidemia, not on meds now. Informed Consent: The patient's anesthetic plan and its attendant risks and benefits were discussed with the patient/family/POA. Questions were solicited and answers provided to the satisfaction of the patient/family/POA.
--- NOTE | 2024-09-11 13:54 | PM.IMHP ---
H&P: HPI History of Present Illness Date/Time: 09/11/24 13:54 Chief Complaint: Chest pain, heartburn Narrative: the patient has been experiencing nonspecific diffuse chest pain episodes, sometimes radiated to left upper and right upper quadrant and epigastrium. She does not identify triggering factors. She is referred for EGD. Review of Systems Review of Systems: All systems reviewed & are unremarkable except as noted in HPI and below PMFSH Past Medical History Medical History Chest pain Constipation GERD (gastroesophageal reflux disease) Left upper quadrant pain Hypertension BRBPR (bright red blood per rectum) Rectal pain Thyroid disorder Overweight Surgical History Surgical History H/O colposcopy with cervical biopsy +hpv - 2 - 3years Family History Family History Mother Hypertension Grandparent High cholesterol Pancreas cancer Other Heart disease Social History Social History Smoking status: Never smoker Substance use: never Substance use type: does not use Lack of Transportation: No Lack of Food: Never True Current Housing: I Have Housing Concerned About Future Housing: No Difficulty Paying Gas/Electric Bills: No Difficulty Paying for Meds: No Currently Unemployed: No Education: Bachelor's Degree Difficulty w/ Childcare or Family Care: No Living arrangements: with family Occupation/Education: occupation Gender identity (if verbalized by the patient): Female Sexual Orientation (if Verbalized by the Patient): Straight or Heterosexual Meds Home Medications and Allergies Home Medications ?Medication ?Instructions ?Recorded ?Confirmed ?Type levothyroxine 75 mcg tablet 100 mcg PO DAILY 09/22/21 09/11/24 History Isaac (28) 0.15 mg-0.03 mg 1 tablet PO DAILY #112 tabs 01/10/24 09/11/24 Rx tablet (levonorgestrel-ethinyl estrad) pantoprazole 40 mg tablet,delayed 40 mg PO BID 3 months #180 tabs 08/29/24 09/11/24 Rx release Allergies Allergy/AdvReac Type Severity Reaction Status Date / Time sulfamethoxazole (From AdvReac Severe Nausea Verified 09/11/24 12:12 Bactrim) trimethoprim (From Bactrim) AdvReac Severe Nausea Verified 09/11/24 12:12 Vital Signs Vital Signs - 24 hr 09/11/24 12:14 Temperature 97.4 F L Pulse Rate 96 Respiratory Rate 16 Blood Pressure 138/94 H Pulse Oximetry 100 Oxygen Delivery Room Air Exam Const: General: cooperative and healthy appearing Resp: Effort & Inspection: normal respiratory effort and able to speak in complete sentences Auscultation: clear to auscultation bilaterally Cardio: Rate: regular rate Rhythm: regular rhythm GI: Inspection: normal to inspection GI Palp: No No hepatosplenomegaly present Auscultation: normal bowel sounds Rectal Exam: deferred Skin: General skin exam: normal color Psych: Appearance: grossly normal Mental Status: mental status grossly normal Assessment and Plan Assessment and plan (1) GERD (gastroesophageal reflux disease): Code(s): K21.9 - Gastro-esophageal reflux disease without esophagitis Status: Acute Assessment and Plan: Suspected atypical GERD. The patient is deemed a good candidate for the procedure. Consent signed. Will proceed.
[2024-09-11 14:15] LABS: BEDSIDEPREGUCG Negative (Negative)
[2024-09-11 14:17] VITALS: BP 110/75; PULSE 90; RESP 23; O2SAT 98
[2024-09-11 14:27] VITALS: BP 116/78; PULSE 80; RESP 22; O2SAT 100
[2024-09-11 14:37] VITALS: BP 126/88; PULSE 85; RESP 27; O2SAT 100
== END 2024-09-11 14:53 | disposition home or self-care (01) ==
PROVIDERS: PCP Internal Medicine; Referring Provider Nurse Practitioner Family; Visit Provider Internal Medicine Gastroenterology
PROC: 0DJ08ZZ Inspection of Upper Intestinal Tract, Via Natural or Artificial Opening Endoscopic (ICD-10-PCS; CPT 43239; principal; 2024-09-11 13:00)
DX: K21.9 Gastro-esophageal reflux disease without esophagitis (principal); R10.30 Lower abdominal pain, unspecified
CPT/HCPCS: 43239; 88305; J2003; J2704; J7120

== ENCOUNTER 2024-09-13 16:44 | Emergency (ER) | payer OTHER, SELFPAY ==
--- NOTE | ~2024-09-13 | XR_ITS ---
XR chest 2V Ordering provider: Winnie Soto NP History: 28 years Female with . chest pain 3 months since chiropractor adjustment . Comparison: February 23, 2024 FINDINGS: MEDIASTINUM: The cardiac silhouette is not enlarged. LUNGS: No infiltrates, effusions or pneumothorax. OTHER: No free air under the diaphragm. IMPRESSION: No acute cardiopulmonary pathology. Reviewed, dictated and finalized at location A.
[2024-09-13 16:54] VITALS: BP 132/95; PULSE 87; RESP 18; TEMP 37.1; O2SAT 100
--- NOTE | 2024-09-13 17:01 | ECG_ITS ---
Test Date: 2024-09-13 17:11:03 Measurements Intervals Bat[place]lor Rate: 84 P: 24 WV: 151 QRS: 58 QRSD: 87 T: 50 QT: 343 QTc: 407 Interpretive Statements SINUS RHYTHM WITH SINUS ARRHYTHMIA NORMAL ECG Compared to ECG 01/16/2024 17:52:23 Sinus tachycardia no longer present Myocardial infarct finding no longer present Electronically Signed On 09-14-2024 09:54:26 CDT by Kevin Seay M.D.
--- NOTE | 2024-09-13 17:20 | ED_ITS ---
"HPI - Anxiety General Chief Complaint: Anxiety Stated Complaint: ANXIETY Time Seen by Provider: 09/13/24 17:20 Source: patient Mode of arrival: ambulatory Limitations: no limitations History of Present Illness HPI narrative: 28 yo F with hx of hypothyroid presents with c/o anxiety, panick attacks. Thinks she has been experiencing for about 3 months. has seen her PCP regarding symptoms of intermittent chest discomfort, upset stomach. Had normal RUQ ultrasound. Recnelty at normal EGD. was taking pantoprazole for GERD but stopped medicaine 2 days ago. Never had GERD symptoms other than chest discomfort. Has mentioned to her PCP that she's concerned for anxiety but subject has been ignored. Pt reports family hx of anxiety. worrying all the time. sometimes waking up from sleep due to worrying. difficulty concentrating . pt states while at work today she briefly became dizzy when sitting down at her desk chair. looked at computer screeen and it was blurry. felt sudden worry feeling and burning to chest. then concerned recent EGD was causing chest discomfort. started googling EGD complications. States this is the worst she has ever felt. Thinks she had panick attack. CP resolved prior to arrival. No N/V. pt had planned to go to [facility] but was so upset and shaky didn't feel like she could drive there. All systems reviewed and negative except as noted above. Related Data Home Medications ?Medication ?Instructions ?Recorded ?Confirmed ?Last Taken ?Type levothyroxine 75 mcg tablet 100 mcg PO DAILY 09/22/21 09/13/24 09/11/24 History Allergies Allergy/AdvReac Type Severity Reaction Status Date / Time sulfamethoxazole (From AdvReac Severe Nausea Verified 09/13/24 16:50 Bactrim) trimethoprim (From Bactrim) AdvReac Severe Nausea Verified 09/13/24 16:50 Review of Systems Review of Systems: CONSTITUTIONAL: Denies fever, chills, or sweats. EYES: Denies visual changes, redness, or discharge. ENT: Denies rhinorrhea, congestion, sore throat, or otalgia. CARDIOVASCULAR: reports chest pain. Denies palpitations, or edema. RESPIRATORY: Denies cough or dyspnea. GASTROINTESTINAL: Denies abdominal pain, nausea, vomiting, or diarrhea. GENITOURINARY: Denies dysuria or hematuria. SKIN: Denies rash or itching. MUSCULOSKELETAL: Denies back pain, joint pain, or myalgia. NEUROLOGIC: Denies headache, numbness, or weakness. PSYCHIATRIC: Reports anxiety, panic attack. Denies depression. All other systems reviewed are negative, except as documented in HPI. [facility] Past Medical History Medical History Chest pain Constipation GERD (gastroesophageal reflux disease) Left upper quadrant pain Hypertension BRBPR (bright red blood per rectum) Rectal pain Thyroid disorder Overweight Surgical History Surgical History H/O colposcopy with cervical biopsy +hpv - 2 - 3years Family History Family History Mother Hypertension Grandparent High cholesterol Pancreas cancer Other Heart disease Social History Social History Smoking status: Never smoker Substance use: never Substance use type: does not use Lack of Transportation: No Lack of Food: Never True Current Housing: I Have Housing Concerned About Future Housing: No Difficulty Paying Gas/Electric Bills: No Difficulty Paying for Meds: No Currently Unemployed: No Education: Bachelor's Degree Difficulty w/ Childcare or Family Care: No Living arrangements: with family Occupation/Education: occupation Gender identity (if verbalized by the patient): Female Sexual Orientation (if Verbalized by the Patient): Straight or Heterosexual Comments At time of signature, agree with nursing past medical, surgical, social and family history. There is no relevant family history pertinent to the presenting complaint. Exam Narrative: GENERAL: This is a well-nourished, well-developed patient, in no apparent distress. HEAD: normocephalic, atraumatic. EYES: PERRL. Sclera clear/white. Vision is grossly intact. EARS: External ears normal, auditory canals clear and without drainage, TMs normal without perforation. Hearing grossly intact. NOSE: External nose normal with no obvious nasal discharge, nares without redness, no rhinorrhea. THROAT: Mucous membranes moist, posterior pharynx clear. NECK: Neck supple, non-tender without lymphadenopathy, masses or thyromegaly. CARDIOVASCULAR: Regular rate and rhythm without murmurs, gallops, or rubs. RESPIRATORY: Clear to auscultation. Breath sounds equal bilaterally. No wheezes, rales, or rhonchi. GASTROINTESTINAL: Abdomen soft, non-tender, nondistended. Bowel sounds are active. No hepato-splenomegaly, or palpable masses. No guarding. SKIN: warm, Dry, intact with no suspicious lesions or rash, good texture and turgor. NEURO: awake, alert, and oriented to person, place and time. There were no obvious focal neurologic abnormalities. EXTREMITIES: No joint tenderness, effusion, or edema noted. Course Course Level of Care: Express Care Visit Vital Signs Vital signs: Vital Signs Temperature 37.1 C 09/13/24 16:54 Pulse Rate 87 09/13/24 16:54 Respiratory Rate 18 09/13/24 16:54 Blood Pressure 132/95 H 09/13/24 16:54 Pulse Oximetry 100 09/13/24 16:54 Temperature 37.1 C 09/13/24 16:54 Pulse Rate 87 09/13/24 16:54 Respiratory Rate 18 09/13/24 16:54 Blood Pressure 132/95 H 09/13/24 16:54 Pulse Oximetry 100 09/13/24 16:54 reviewed MDM - Anxiety MDM Narrative Medical decision making narrative: pt is well appearing, nontoxic. EKG NSR, no ischemia. HR 84. CP, dizziness resolved prior to arrival. pt states feeling better since talking wiht nurse and myself regarding her symptoms. pt is very concerned alot of her symptoms are due to anxiety and has been ignored regarding these feelsings. Will start buspar, hydroxyzine. educated pt about these medications. referred to mental health [facility] for follow up. did offer to transfer pt to ER for further evaluation and she did not feel was necesssary. Please be advised this is a medical document. It is intended for [id number] communication. It is written in medical language and may contain unfamiliar abbreviations or verbiage. Medical documents are intended to carry relevant information, facts as evident, and the clinical opinion of the practitioner at the time of the encounter. This report may have been done utilizing a voice recognition system. Attempts have been made to correct errors. However, there may be uncorrected grammatical, spelling, and recognition errors present. The file time of this note does not necessarily represent the time of service. Lab Data Labs: Lab Results 09/13/24 Range/Units 18:18 POC Urine Color Yellow POC Urine Clarity Clear POC Urine pH 6.0 POC Ur Specif Jemison 1.010 POC Urine Protein Negative (Negative) POC Ur Glucose (UA) Negative (Negative) POC Urine Ketones Negative (Negative) POC Urine Blood Trace (Negative) POC Urine Nitrite Negative (Negative) POC Urine Bilirubin Negative (Negative) POC Urine Urobilinogen 0.2 POC U Leukocyte Esteras 1+ (Negative) Discharge Plan Discharge Clinical Impression: Anxiety Patient Disposition: Home, Self-Care Condition: Stable Instructions: Anxiety (ED) Additional Instructions: Your EKG and chest x-ray was normal. Take medications as prescribed. Hydroxyzine may cause drowsiness. Do not take while driving. [facility] [phone] Patient Language: Kenyan Prescriptions: New hydroxyzine HCl 25 mg tablet 25 mg PO Q6H PRN (Reason: anxiety) Qty: 30 0RF buspirone 5 mg tablet See Rx Instructions .ROUTE .COMPLEX Qty: 60 0RF Rx Instructions: Take 1 tablet twice a day. Increase every 3 days by 5mg until taking total of 2 tablets twice a day. No Action levothyroxine 75 mcg Tablet 100 mcg PO DAILY levonorgestrel-ethinyl estrad [Champo (28)] 0.15-0.03 mg tablet 1 tablet PO DAILY Qty: 112 4RF Rx Instructions: no substitutions take in a continuous manner, skipping placebo to skip cycles pantoprazole 40 mg tablet,delayed release (DR/EC) 40 mg PO BID 90 Days Qty: 180 3RF Follow-up/Referrals: Wei Hull MD [Primary Care Provider] - Time of Disposition: 18:18"
[2024-09-13 18:20] LABS: EDUAAPPEAR Clear; EDUABILI Negative (Negative); EDUABLOOD Trace (Negative); EDUACOLOR1 Yellow; EDUAGLUCOSE Negative (Negative); EDUAKETONE Negative (Negative); EDUALEUKO 1+ (Negative); EDUANITRATE Negative (Negative); EDUAPROTEIN Negative (Negative); EDUAUROBILI 0.2
== END 2024-09-13 18:34 | disposition home or self-care (01) ==
PROVIDERS: Emergency Provider Nurse Practitioner Family; PCP Internal Medicine
DX: F41.9 Anxiety disorder, unspecified (principal); I10 Essential (primary) hypertension; Z79.899 Other long term (current) drug therapy
CPT/HCPCS: 71046; 81003; 87086; 93005; 99213; G0463

== ENCOUNTER 2024-09-20 09:33 | Outpatient (CLI) | payer OTHER, SELFPAY ==
--- NOTE | ~2024-09-20 | MMUS_ITS ---
EXAMINATION: MM diagnostic chica BI w mayito, US breast LT complete HISTORY: Palpable left breast lump TECHNIQUE: Additional 3-D tomosynthesis images of the breasts were performed and synthetic 2-D images were generated. CAD analysis was submitted and interpreted. High resolution complete left breast ult rasound was performed. COMPARISON: No prior studies for comparison. BREAST PARENCHYMAL COMPOSITION: Dense: The breasts are heterogeneously dense, which may obscure small masses FINDINGS: MAMMOGRAPHIC FINDINGS: There are small obscured masses upper outer quadrant of the left breast, largest measuring 11 mm. The se are located in the middle third of the breasts. There are no suspicious calcifications or architec tural distortion. There is no mammographic evidence for right breast. ULTRASOUND: Complete US of all 4 quadrants of the left breast/s and retroareolar region was reviewed. At 1:00 clarissa r the nipple there is a 1 cm cyst. 6 cm from the nipple there is an 11 mm cyst. At 1-2:00, 2 cm from the nipple there is a 10 mm cyst. At 1-2:00, 3-5 cm from the nipple there is an 11 mm cyst. No suspic ious masses to suggest malignancy. IMPRESSION: 1. No evidence for malignancy in either breast. Benign findings. 2. Routine yearly screening mammogram and regular clinical breast examination are recommended. BI-RADS Category 2: Benign finding(s). Reviewed, dictated and finalized at location A. IMPRESSION: 1. No evidence for malignancy in either breast. Benign findings. 2. Routine yearly screening mammogram and regular clinical breast examination a re recommended. BI-RADS Category 2: Benign finding(s).
--- OUTSIDE RECORDS SUMMARY | 2024-09-20 09:41 | XMS_ITS | Referral Summary ---
Author Organization [facility] Address [address] [place] [id number] Care Team Providers Care Contribution Solicitor Name Role Phone Wei Hull MD Primary Care Provider + [phone] Allergies No known active allergies Medications Kurvelo, 28, 0.15-0.03 mg per tablet Take 1 tablet by mouth daily 0 Active levothyroxine sodium (TIROSINT) 100 mcg capsule Take 100 mcg by mouth fuel injection servicer before breakfast Active Active Problems No known [...] Plan of Treatment Not on file Insurance [facility] CHOICE PLUS Care Teams Contribution Solicitor Relationship Specialty Start Date End Date Wei Hull MD [address] [place] [address] PCP - General Internal Medicine 03/26/20
--- OUTSIDE RECORDS SUMMARY | 2024-09-20 09:41 | XMS_ITS | Clinical Summary ---
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
--- OUTSIDE RECORDS SUMMARY | 2024-09-20 09:41 | XMS_ITS | Clinical Summary ---
Author Organization [facility] Address [address] [place] [id number] Care Team Providers Care Bible Teacher Name Role Phone Wei Hull MD Primary Care Provider + [phone] Allergies No known active allergies Medications Kurvelo, 28, 0.15-0.03 mg per tablet Take 1 tablet by mouth daily 0 Active levothyroxine sodium (TIROSINT) 100 mcg capsule Take 100 mcg by mouth testing lead before breakfast Active Active Problems No known [...] Plan of Treatment Not on file Insurance [facility] CHOICE PLUS Care Teams Bible Teacher Relationship Specialty Start Date End Date Wei Hull MD [address] [place] [address] PCP - General Internal Medicine 03/26/20
== END 2024-09-20 09:34 | disposition home or self-care (01) ==
LOC: CHSIMG 09:33
PROVIDERS: PCP Internal Medicine; Visit Provider Obstetrics & Gynecology
DX: N64.4 Mastodynia (principal); N63.20 Unspecified lump in the left breast, unspecified quadrant
CPT/HCPCS: 76641; 77062; 77066; G0279